=== PATIENT | male | born 1970 | race African-American/Black ===

== ENCOUNTER 2023-11-22 11:03 | Inpatient (IN) | payer OTHER ==
[2023-11-22 11:25] VITALS: BMI 31.0
[2023-11-22] MEDS ORDERED: guaiFENesin 600 MG TABLET.ER (FP) PO PRN (13:09)
[2023-11-22] MEDS ORDERED: METHOCARBAMOL 500 MG TABLET PO PRN (13:09)
[2023-11-22] MEDS ORDERED: ACETAMINOPHEN 325 MG TABLET (FP) PO PRN (13:09)
[2023-11-22] MEDS ORDERED: DICYCLOMINE HCL 10 MG CAPSULE PO PRN (13:09)
[2023-11-22] MEDS ORDERED: MAGNESIUM HYDROX 2400MG/30ML ORAL SUSPENSION 30 ML CUP PO PRN (13:09)
[2023-11-22] MEDS ORDERED: ONDANSETRON *ODT* 4 MG TABLET SL PRN (13:09)
[2023-11-22] MEDS ORDERED: MAG HYDROX/AL HYDROX/SIMETH 30 ML UNIT-DOSE CUP PO PRN (13:09)
[2023-11-22] MEDS ORDERED: IBUPROFEN 400 MG TABLET (FP) PO PRN (13:09)
[2023-11-22] MEDS ORDERED: POLYETHYLENE GLYCOL (HEALTHYLAX) 3350 17 GM PACKET PO PRN (13:09)
[2023-11-22] MEDS ORDERED: LOPERAMIDE HCL 2 MG CAPSULE PO PRN (13:09)
[2023-11-22] MEDS ORDERED: BENZONATATE 200 MG CAPSULE PO PRN (13:09)
[2023-11-22] MEDS ORDERED: IBUPROFEN 600 MG TABLET (FP) PO PRN (13:09)
[2023-11-22] MEDS ORDERED: hydrOXYzine PAMOATE 25 MG CAPSULE (FP) PO PRN (13:09)
[2023-11-22] MEDS ORDERED: NALOXONE HCL (KLOXXADO) 8 MG SPRAY NS PRN (13:09)
[2023-11-22] MEDS ORDERED: BENZOCAINE/MENTHOL (CHLORASEPTIC ) LOZENGE MM PRN (13:09)
[2023-11-22] MEDS ORDERED: NALOXONE HCL 0.4 MG/ML VIAL IM PRN (13:09)
[2023-11-22] MEDS ORDERED: BISMUTH SUBSALICYLATE 262 MG/15 ML BTL PO PRN (13:09)
[2023-11-22] MEDS ORDERED: NICOTINE POLACRILEX 2 MG GUM BUC PRN (13:19)
[2023-11-22] MEDS: NICOTINE 14 MG/24 HOURS TOPICAL PATCH TD SCH (14:19)
[2023-11-22] MEDS ORDERED: amLODIPine BESYLATE 5 MG TABLET (FP) ONE (14:20)
[2023-11-22] MEDS ORDERED: ASPIRIN 81 MG CHEWABLE TABLETS ONE (14:20)
[2023-11-22] MEDS ORDERED: PRENATAL VITAMINS W/ FOLIC ACID TABLET (FP) PO ONE (14:20)
[2023-11-22] MEDS: PRENATAL VITAMINS W/ FOLIC ACID TABLET (FP) PO SCH (14:22)
[2023-11-22] MEDS: ASPIRIN 81 MG CHEWABLE TABLETS PO SCH (14:22)
[2023-11-22] MEDS: amLODIPine BESYLATE 10 MG TABLET (FP) PO SCH (14:22)
[2023-11-22] MEDS: THIAMINE HCL 100 MG TABLET (FP) PO SCH (22:21)
[2023-11-22] MEDS: ATORVASTATIN CA 10 MG TABLET (FP) PO SCH (22:21)
[2023-11-22] MEDS: QUEtiapine FUMARATE 50 MG TABLET PO SCH (22:21)
[2023-11-22] MEDS: MELATONIN 5 MG TABLETS PO SCH (22:24)
[2023-11-22] MEDS: LISINOPRIL 20 MG TABLET PO ONE (22:32)
[2023-11-23 09:13] VITALS: TEMP 97.7
[2023-11-23] MEDS ORDERED: diazePAM 5 MG TABLET PO PRN (09:18)
[2023-11-23] MEDS: LISINOPRIL 20 MG TABLET PO SCH (09:24)
[2023-11-23] MEDS: ESCITALOPRAM OXALATE 10 MG TABLET PO SCH (09:24)
[2023-11-23] MEDS ORDERED: diazePAM 5 MG TABLET PO SCH (11:00)
[2023-11-23 12:12] LABS: HEMATOCRIT 43.8 % (35.4-49); HEMOGLOBIN 14.7 GM/dL (11.7-16.9); MCH 32.1 pg (25.7-33.7); MCHC 33.4 g/dl (32.0-35.9); PLATELET COUNT 233 10^3/uL (134-434); RBC 4.57 M/mm3 (4.00-5.60); RDW 15.6 % (11.9-15.9); WHITE BLOOD COUNT 3.7 K/mm3 (4.0-10.0)
[2023-11-23 12:49] VITALS: BP 167/92; PULSE 67; RESP 20
[2023-11-23 13:20] LABS: CHLORIDE 109 mmol/L (98-107); SODIUM 141 mmol/L (136-145)
[2023-11-23 13:29] LABS: CREATININE 0.9 mg/dL (0.55-1.3)
[2023-11-23 13:30] LABS: BILIRUBIN,TOTAL 0.3 mg/dL (0.2-1)
[2023-11-23 13:31] LABS: BLOOD UREA NITROGEN 7.7 mg/dL (7-18); TOT PROT 6.9 g/dl (6.4-8.2)
[2023-11-23 13:32] LABS: ALBUMIN 3.3 g/dl (3.4-5.0); ALK PHOS 67 U/L (45-117); ANION GAP 4 mmol/L (4-13); CO2 28 mmol/L (21-32); GLUCOSE,RANDOM 100 mg/dL (74-106)
[2023-11-23 13:33] LABS: SGOT/AST 16 U/L (15-37)
[2023-11-23] MEDS ORDERED: cloNIDine HCL 0.1 MG TABLET PO PRN (13:48)
[2023-11-23 13:58] LABS: SGPT/ALT 24 U/L (13-61)
[2023-11-23 18:40] LABS: HIV INTERPRETATION NEGATIVE (NEGATIVE)
[2023-11-25] MEDS ORDERED: diazePAM 5 MG TABLET PO SCH (06:00)
[2023-11-26] MEDS ORDERED: diazePAM 5 MG TABLET PO SCH (06:00)
[2023-11-27] MEDS ORDERED: diazePAM 5 MG TABLET PO ONE (06:00)
== END 2023-11-23 14:57 | disposition other institution (70) | DRG 774 ==
LOC: YASAS 11:03 → Y6N 13:34
PROVIDERS: ADMIT Allergy & Immunology; ATTEND Surgery
PROC: HZ2ZZZZ Detoxification Services for Substance Abuse Treatment (ICD-10-PCS; principal; 2023-11-22)
DX: F10.20 Alcohol dependence, uncomplicated (principal); F14.10 Cocaine abuse, uncomplicated; F17.210 Nicotine dependence, cigarettes, uncomplicated; F25.1 Schizoaffective disorder, depressive type; E78.5 Hyperlipidemia, unspecified; I10 Essential (primary) hypertension; Z62.810 Personal history of physical and sexual abuse in childhood; Z63.8 Other specified problems related to primary support group
CPT/HCPCS: 36415; 80053; 80305; 80307; 82140; 85027; 86780; 87389; 87635; 87811; 93005; 93010

== ENCOUNTER 2023-11-23 15:03 | Inpatient (IN) | payer OTHER ==
[~2023-11-23 15:03] MED LIST: BENZOCAINE/MENTHOL (CHLORASEPTIC ) LOZENGE MM PRN; BENZONATATE 200 MG CAPSULE PO PRN; IBUPROFEN 400 MG TABLET (FP) PO PRN; IBUPROFEN 600 MG TABLET (FP) PO PRN; LOPERAMIDE HCL 2 MG CAPSULE PO PRN; MAG HYDROX/AL HYDROX/SIMETH 30 ML UNIT-DOSE CUP PO PRN; MAGNESIUM HYDROX 2400MG/30ML ORAL SUSPENSION 30 ML CUP PO PRN; METHOCARBAMOL 500 MG TABLET PO PRN; NICOTINE 14 MG/24 HOURS TOPICAL PATCH TD PRN; NICOTINE 7 MG/24 HOURS TOPICAL PATCH TD PRN; NICOTINE POLACRILEX 2 MG GUM BUC PRN; POLYETHYLENE GLYCOL (HEALTHYLAX) 3350 17 GM PACKET PO PRN; guaiFENesin 600 MG TABLET.ER (FP) PO PRN
[2023-11-23] MEDS: THIAMINE HCL 100 MG TABLET (FP) PO SCH (21:23)
[2023-11-23] MEDS: MELATONIN 5 MG TABLETS PO SCH (21:23)
[2023-11-23] MEDS: ATORVASTATIN CA 10 MG TABLET (FP) PO SCH (21:23)
[2023-11-23] MEDS: QUEtiapine FUMARATE 50 MG TABLET PO SCH (21:24)
[2023-11-24] MEDS: hydrOXYzine PAMOATE 25 MG CAPSULE (FP) PO PRN (06:38)
[2023-11-24] MEDS: ACETAMINOPHEN 325 MG TABLET (FP) PO PRN (06:39)
[2023-11-24] MEDS: LISINOPRIL 20 MG TABLET PO SCH (10:25)
[2023-11-24] MEDS: ESCITALOPRAM OXALATE 10 MG TABLET PO SCH (10:26)
[2023-11-24] MEDS: PRENATAL VITAMINS W/ FOLIC ACID TABLET (FP) PO SCH (10:26)
[2023-11-24] MEDS: amLODIPine BESYLATE 10 MG TABLET (FP) PO SCH (10:26)
[2023-11-24] MEDS: ASPIRIN 81 MG CHEWABLE TABLETS PO SCH (10:26)
[2023-11-25] MEDS: HYDROCHLOROTHIAZIDE 12.5 MG CAPSULE (FP) PO SCH (16:39)
[2023-12-01 06:33] VITALS: PULSE 78; RESP 17; TEMP 97.7
[2023-12-01 10:26] VITALS: BP 131/73
[2023-12-02] MEDS ORDERED: HYDROCHLOROTHIAZIDE 25 MG TABLET (FP) PO SCH (10:00)
== END 2023-12-01 17:20 | disposition home or self-care (01) | DRG 772 ==
LOC: YASAS 15:03 → Y3W 15:04
PROVIDERS: ADMIT Allergy & Immunology; ATTEND Psychiatry & Neurology Pain Medicine
PROC: HZ42ZZZ Group Counseling for Substance Abuse Treatment, Cognitive-Behavioral (ICD-10-PCS; principal; 2023-11-23)
DX: F10.20 Alcohol dependence, uncomplicated (principal); F14.20 Cocaine dependence, uncomplicated; F12.20 Cannabis dependence, uncomplicated; F17.210 Nicotine dependence, cigarettes, uncomplicated; F25.1 Schizoaffective disorder, depressive type; F32.9 Major depressive disorder, single episode, unspecified; E78.5 Hyperlipidemia, unspecified; I10 Essential (primary) hypertension

== ENCOUNTER 2024-01-01 11:42 | Inpatient (IN) | payer OTHER ==
[2024-01-01 12:22] VITALS: BMI 31.0
[2024-01-01] MEDS ORDERED: POLYETHYLENE GLYCOL (HEALTHYLAX) 3350 17 GM PACKET PO PRN (13:22)
[2024-01-01] MEDS ORDERED: DOCUSATE SODIUM 100 MG CAPSULE (FP) PO PRN (13:22)
[2024-01-01] MEDS ORDERED: guaiFENesin 600 MG TABLET.ER (FP) PO PRN (13:22)
[2024-01-01] MEDS ORDERED: BENZONATATE 200 MG CAPSULE PO PRN (13:22)
[2024-01-01] MEDS ORDERED: NICOTINE POLACRILEX 2 MG GUM BUC PRN (13:22)
[2024-01-01] MEDS ORDERED: LOPERAMIDE HCL 2 MG CAPSULE PO PRN (13:22)
[2024-01-01] MEDS ORDERED: IBUPROFEN 400 MG TABLET (FP) PO PRN (13:22)
[2024-01-01] MEDS ORDERED: P-EPHED 60MG/TRIPROLIDI 2.5MG TABLET PO PRN (13:22)
[2024-01-01] MEDS ORDERED: MAGNESIUM HYDROX 2400MG/30ML ORAL SUSPENSION 30 ML CUP PO PRN (13:22)
[2024-01-01] MEDS: ASPIRIN 81 MG CHEWABLE TABLETS PO SCH (14:28)
[2024-01-01] MEDS: THIAMINE 100 MG TABLET PO SCH (21:13)
[2024-01-01] MEDS: MELATONIN 5 MG TABLETS PO SCH (21:13)
[2024-01-01] MEDS: hydrOXYzine PAMOATE 25 MG CAPSULE (FP) PO PRN (21:13)
[2024-01-01] MEDS: ATORVASTATIN CA 10 MG TABLET (FP) PO SCH (21:14)
[2024-01-01] MEDS: QUEtiapine FUMARATE 100 MG TABLET (FP) PO SCH (21:14)
[2024-01-02] MEDS: IBUPROFEN 600 MG TABLET (FP) PO PRN (05:48)
[2024-01-02] MEDS: HYDROCHLOROTHIAZIDE 12.5 MG CAPSULE (FP) PO SCH (10:20)
[2024-01-02] MEDS: amLODIPine BESYLATE 10 MG TABLET (FP) PO SCH (10:20)
[2024-01-02] MEDS: PRENATAL VITAMINS W/ FOLIC ACID TABLET (FP) PO SCH (10:20)
[2024-01-02] MEDS: ESCITALOPRAM OXALATE 10 MG TABLET PO SCH (10:20)
[2024-01-02] MEDS: LISINOPRIL 20 MG TABLET PO SCH (10:20)
[2024-01-02 11:57] LABS: HEMATOCRIT 44.9 % (35.4-49); HEMOGLOBIN 14.4 GM/dL (11.7-16.9); MCH 31.4 pg (25.7-33.7); MCHC 32.1 g/dl (32.0-35.9); MEAN CELL VOLUME 97.7 fl (80-96); MEAN PLT VOLUME 9.4 fl (7.5-11.1); PLATELET COUNT 192 10^3/uL (134-434); RDW 15.4 % (11.9-15.9); WHITE BLOOD COUNT 3.5 K/mm3 (4.0-10.0)
[2024-01-02 12:08] LABS: CHLORIDE 107 mmol/L (98-107); POTASSIUM 3.9 mmol/L (3.5-5.1); SODIUM 141 mmol/L (136-145)
[2024-01-02 12:10] LABS: CALCIUM 8.8 mg/dL (8.5-10.1)
[2024-01-02 12:11] LABS: ANION GAP 4 mmol/L (4-13); CO2 30 mmol/L (21-32)
[2024-01-02 12:13] LABS: GLUCOSE,RANDOM 126 mg/dL (74-106)
[2024-01-02 12:14] LABS: ALBUMIN 3.2 g/dl (3.4-5.0); BLOOD UREA NITROGEN 9.4 mg/dL (7-18); SGPT/ALT 26 U/L (13-61)
[2024-01-02 12:15] LABS: BILIRUBIN,TOTAL 0.2 mg/dL (0.2-1); TOT PROT 6.6 g/dl (6.4-8.2)
[2024-01-02 12:17] LABS: ALK PHOS 70 U/L (45-117); SGOT/AST 23 U/L (15-37)
[2024-01-02] MEDS ORDERED: QUEtiapine FUMARATE 100 MG TABLET (FP) ONE (20:38)
[2024-01-02] MEDS: QUEtiapine FUMARATE 300 MG TABLET PO SCH (21:27)
[2024-01-03] MEDS ORDERED: QUEtiapine FUMARATE 100 MG TABLET (FP) ONE (18:36)
[2024-01-04] MEDS ORDERED: QUEtiapine FUMARATE 100 MG TABLET (FP) ONE (19:05)
[2024-01-04] MEDS: BACLOFEN 10 MG TABLET (FP) PO SCH (21:12)
[2024-01-05] MEDS: LISINOPRIL 20 MG TABLET PO SCH (09:54)
[2024-01-05] MEDS ORDERED: QUEtiapine FUMARATE 100 MG TABLET (FP) ONE (18:46)
[2024-01-06] MEDS ORDERED: QUEtiapine FUMARATE 100 MG TABLET (FP) ONE (20:12)
[2024-01-07 11:58] LABS: PROTHROMBIN TIME (PATIENT) 11.6 SEC (9.7-13.0)
[2024-01-07] MEDS ORDERED: QUEtiapine FUMARATE 100 MG TABLET (FP) ONE (20:49)
[2024-01-08] MEDS ORDERED: QUEtiapine FUMARATE 100 MG TABLET (FP) ONE (20:07)
[2024-01-09] MEDS ORDERED: QUEtiapine FUMARATE 100 MG TABLET (FP) ONE (18:51)
[2024-01-10] MEDS ORDERED: QUEtiapine FUMARATE 100 MG TABLET (FP) ONE (19:31)
[2024-01-11 11:22] LABS: PH,URINE 6.5 (5.0-8.0); URINE APPEARANCE CLEAR; URINE BILIRUBIN NEGATIVE (NEGATIVE); URINE COLOR YELLOW; URINE GLUCOSE (UA) NEGATIVE (NEGATIVE); URINE KETONE NEGATIVE (NEGATIVE); URINE LEUK ESTERASE NEGATIVE (NEGATIVE); URINE NITRITE NEGATIVE (NEGATIVE); URINE PROTEIN NEGATIVE (NEGATIVE); URINE UROBILINOGEN 0.2 mg/dL (0.2-1.0)
[2024-01-11] MEDS ORDERED: QUEtiapine FUMARATE 100 MG TABLET (FP) ONE (19:29)
[2024-01-12] MEDS ORDERED: QUEtiapine FUMARATE 100 MG TABLET (FP) ONE (19:12)
[2024-01-12] MEDS: MAG HYDROX/AL HYDROX/SIMETH 30 ML UNIT-DOSE CUP PO PRN (20:33)
[2024-01-13] MEDS: BENZOCAINE/MENTHOL (CHLORASEPTIC ) LOZENGE MM PRN (09:16)
[2024-01-13] MEDS ORDERED: BENZONATATE 200 MG CAPSULE PO PRN (12:33)
[2024-01-13] MEDS: CHOLECALCIFEROL (VIT D3) 400 UNIT (10 MCG) TABLET PO SCH (12:55)
[2024-01-13] MEDS ORDERED: QUEtiapine FUMARATE 100 MG TABLET (FP) ONE (21:25)
[2024-01-14] MEDS ORDERED: QUEtiapine FUMARATE 100 MG TABLET (FP) ONE (19:25)
[2024-01-14] MEDS: ACETAMINOPHEN 325 MG TABLET (FP) PO PRN (20:26)
[2024-01-14] MEDS: guaiFENesin 600 MG TABLET.ER (FP) PO PRN (20:26)
[2024-01-15 09:11] VITALS: RESP 18
[2024-01-16 06:42] VITALS: TEMP 97.3
[2024-01-16 09:01] VITALS: BP 136/76; PULSE 92
== END 2024-01-16 09:03 | disposition home or self-care (01) | DRG 772 ==
LOC: YASAS 11:42 → Y3W 15:39
PROVIDERS: ADMIT Allergy & Immunology; ATTEND Psychiatry & Neurology Pain Medicine
PROC: HZ42ZZZ Group Counseling for Substance Abuse Treatment, Cognitive-Behavioral (ICD-10-PCS; principal; 2024-01-01)
DX: F10.20 Alcohol dependence, uncomplicated (principal); F14.20 Cocaine dependence, uncomplicated; F12.20 Cannabis dependence, uncomplicated; F17.210 Nicotine dependence, cigarettes, uncomplicated; F25.1 Schizoaffective disorder, depressive type; F19.282 Other psychoactive substance dependence with psychoactive substance-induced sleep disorder; E78.5 Hyperlipidemia, unspecified; I10 Essential (primary) hypertension; Z56.0 Unemployment, unspecified
CPT/HCPCS: 36415; 80053; 80307; 81003; 82140; 82306; 82962; 83036; 83735; 85027; 85610; 86780; 87811; J0475

== ENCOUNTER 2024-05-23 16:54 | Inpatient (IN) | payer OTHER ==
[2024-05-23 18:04] VITALS: BMI 33.0
[2024-05-23] MEDS ORDERED: MAGNESIUM HYDROX 2400MG/30ML ORAL SUSPENSION 30 ML CUP PO PRN (19:04)
[2024-05-23] MEDS ORDERED: LOPERAMIDE HCL 2 MG CAPSULE PO PRN (19:04)
[2024-05-23] MEDS ORDERED: IBUPROFEN 600 MG TABLET (FP) PO PRN (19:04)
[2024-05-23] MEDS ORDERED: BENZONATATE 200 MG CAPSULE PO PRN (19:04)
[2024-05-23] MEDS ORDERED: POLYETHYLENE GLYCOL (HEALTHYLAX) 3350 17 GM PACKET PO PRN (19:04)
[2024-05-23] MEDS ORDERED: NICOTINE POLACRILEX 2 MG LOZENGE BC PRN (19:04)
[2024-05-23] MEDS ORDERED: NICOTINE POLACRILEX 2 MG GUM BUC PRN (19:04)
[2024-05-23] MEDS ORDERED: IBUPROFEN 400 MG TABLET (FP) PO PRN (19:04)
[2024-05-23] MEDS ORDERED: MAG HYDROX/AL HYDROX/SIMETH 30 ML UNIT-DOSE CUP PO PRN (19:04)
[2024-05-23] MEDS ORDERED: guaiFENesin 600 MG TABLET.ER (FP) PO PRN (19:04)
[2024-05-23] MEDS ORDERED: BENZOCAINE/MENTHOL (CHLORASEPTIC ) LOZENGE MM PRN (19:04)
[2024-05-23] MEDS: THIAMINE 100 MG TABLET PO SCH (21:58)
[2024-05-23] MEDS: MELATONIN 5 MG TABLETS PO SCH (21:58)
[2024-05-23] MEDS: hydrOXYzine PAMOATE 25 MG CAPSULE (FP) PO PRN (21:58)
[2024-05-24 08:08] LABS: URINE APPEARANCE CLOUDY; URINE BILIRUBIN NEGATIVE (NEGATIVE); URINE COLOR YELLOW; URINE GLUCOSE (UA) NEGATIVE (NEGATIVE); URINE KETONE NEGATIVE (NEGATIVE); URINE LEUK ESTERASE NEGATIVE (NEGATIVE); URINE NITRITE NEGATIVE (NEGATIVE); URINE PROTEIN NEGATIVE (NEGATIVE)
[2024-05-24] MEDS: PRENATAL VITAMINS W/ FOLIC ACID TABLET (FP) PO SCH (09:58)
[2024-05-24] MEDS: ASPIRIN COATED 81 MG TABLET.EC PO SCH (13:45)
[2024-05-24] MEDS: amLODIPine BESYLATE 10 MG TABLET (FP) PO SCH (13:45)
[2024-05-24] MEDS: LISINOPRIL 20 MG TABLET PO SCH (13:46)
[2024-05-24] MEDS: QUEtiapine FUMARATE 50 MG TABLET PO SCH (21:32)
[2024-05-24] MEDS: ATORVASTATIN CA 10 MG TABLET (FP) PO SCH (21:32)
[2024-05-24] MEDS: BACLOFEN 10 MG TABLET (FP) PO SCH (21:32)
[2024-05-25] MEDS: HYDROCHLOROTHIAZIDE 12.5 MG CAPSULE (FP) PO SCH (10:43)
[2024-05-25] MEDS: CHOLECALCIFEROL (VIT D3) 400 UNIT (10 MCG) TABLET PO SCH (10:46)
[2024-05-25] MEDS: ESCITALOPRAM OXALATE 10 MG TABLET PO SCH (10:47)
[2024-05-26] MEDS ORDERED: QUEtiapine FUMARATE 25 MG TABLET ONE (20:51)
[2024-05-27] MEDS: HYDROCHLOROTHIAZIDE 25 MG TABLET (FP) PO SCH (09:35)
[2024-05-27] MEDS: ACETAMINOPHEN 325 MG TABLET (FP) PO PRN (22:16)
[2024-05-29 12:14] LABS: HEMATOCRIT 44.1 % (35.4-49); HEMOGLOBIN 14.5 GM/dL (11.7-16.9); MCH 31.4 pg (25.7-33.7); MCHC 32.8 g/dl (32.0-35.9); MEAN CELL VOLUME 95.7 fl (80-96); MEAN PLT VOLUME 9.2 fl (7.5-11.1); PLATELET COUNT 229 10^3/uL (134-434); RBC 4.61 M/mm3 (4.00-5.60); RDW 14.7 % (11.9-15.9)
[2024-05-29 12:36] LABS: CALCIUM 9.8 mg/dL (8.5-10.1)
[2024-05-29 12:38] LABS: ALBUMIN 3.4 g/dl (3.4-5.0); BLOOD UREA NITROGEN 13.5 mg/dL (7-18)
[2024-05-29 12:39] LABS: CREATININE 1.1 mg/dL (0.55-1.3)
[2024-05-29 12:41] LABS: BILIRUBIN,TOTAL 0.2 mg/dL (0.2-1); TOT PROT 7.2 g/dl (6.4-8.2)
[2024-06-03] MEDS ORDERED: QUEtiapine FUMARATE 25 MG TABLET ONE (21:31)
[2024-06-05 09:28] VITALS: BP 132/79; PULSE 90; RESP 18; TEMP 97.9
== END 2024-06-05 10:56 | disposition home or self-care (01) | DRG 772 ==
LOC: YASAS 16:54 → Y3E 21:25
PROVIDERS: ADMIT Allergy & Immunology; ATTEND Psychiatry & Neurology Pain Medicine
PROC: HZ42ZZZ Group Counseling for Substance Abuse Treatment, Cognitive-Behavioral (ICD-10-PCS; principal; 2024-05-23)
DX: F14.20 Cocaine dependence, uncomplicated (principal); F12.20 Cannabis dependence, uncomplicated; F17.210 Nicotine dependence, cigarettes, uncomplicated; F25.1 Schizoaffective disorder, depressive type; F19.282 Other psychoactive substance dependence with psychoactive substance-induced sleep disorder; I10 Essential (primary) hypertension; E78.5 Hyperlipidemia, unspecified; Z62.810 Personal history of physical and sexual abuse in childhood; Z63.8 Other specified problems related to primary support group
CPT/HCPCS: 36415; 80053; 80305; 80307; 81003; 84460; 85027; 87811; J0475

== ENCOUNTER 2024-09-19 14:27 | Inpatient (IN) | payer OTHER ==
[2024-09-19 15:12] VITALS: BMI 38.4
[2024-09-19] MEDS ORDERED: MAG HYDROX/AL HYDROX/SIMETH 30 ML UNIT-DOSE CUP PO PRN (17:02)
[2024-09-19] MEDS ORDERED: NALOXONE (NARCAN) HCL 4 MG/0.1 ML SPRAY NS PRN (17:02)
[2024-09-19] MEDS ORDERED: LOPERAMIDE HCL 2 MG CAPSULE PO PRN (17:02)
[2024-09-19] MEDS ORDERED: MAGNESIUM HYDROX 2400MG/30ML ORAL SUSPENSION 30 ML CUP PO PRN (17:02)
[2024-09-19] MEDS ORDERED: ACETAMINOPHEN 325 MG TABLET (FP) PO PRN (17:02)
[2024-09-19] MEDS ORDERED: BENZOCAINE/MENTHOL (CHLORASEPTIC ) LOZENGE MM PRN (17:02)
[2024-09-19] MEDS ORDERED: BISMUTH SUBSALICYLATE 524 MG/30 ML PO PRN (17:02)
[2024-09-19] MEDS ORDERED: ONDANSETRON *ODT* 4 MG TABLET SL PRN (17:02)
[2024-09-19] MEDS ORDERED: BENZONATATE 200 MG CAPSULE PO PRN (17:02)
[2024-09-19] MEDS ORDERED: DICYCLOMINE HCL 10 MG CAPSULE PO PRN (17:02)
[2024-09-19] MEDS ORDERED: IBUPROFEN 400 MG TABLET (FP) PO PRN (17:02)
[2024-09-19] MEDS ORDERED: POLYETHYLENE GLYCOL (HEALTHYLAX) 3350 17 GM PACKET PO PRN (17:02)
[2024-09-19] MEDS ORDERED: guaiFENesin 600 MG TABLET.ER (FP) PO PRN (17:02)
[2024-09-19] MEDS: IBUPROFEN 600 MG TABLET (FP) PO PRN (18:22)
[2024-09-19] MEDS: MELATONIN 5 MG TABLETS PO SCH (22:19)
[2024-09-19] MEDS: THIAMINE 100 MG TABLET PO SCH (22:19)
[2024-09-19] MEDS: hydrOXYzine PAMOATE 25 MG CAPSULE (FP) PO PRN (22:20)
[2024-09-19] MEDS: hydrOXYzine PAMOATE 25 MG CAPSULE (FP) PO ONE (23:37)
[2024-09-19] MEDS: MELATONIN 5 MG TABLETS PO ONE (23:38)
[2024-09-20] MEDS: LISINOPRIL 20 MG TABLET PO SCH (09:44)
[2024-09-20] MEDS: DIVALPROEX SODIUM 500 MG TABLET E.C. PO SCH (09:44)
[2024-09-20] MEDS: ASPIRIN 81 MG CHEWABLE TABLETS PO SCH (09:44)
[2024-09-20] MEDS: amLODIPine BESYLATE 10 MG TABLET (FP) PO SCH (09:44)
[2024-09-20] MEDS: PRENATAL VITAMINS W/ FOLIC ACID TABLET (FP) PO SCH (09:44)
[2024-09-20] MEDS: CHOLECALCIFEROL (VIT D3) 400 UNIT (10 MCG) TABLET PO SCH (09:46)
[2024-09-20] MEDS ORDERED: chlordiazePOXIDE HCL 25 MG CAPSULE PO PRN (10:06)
[2024-09-20] MEDS: chlordiazePOXIDE HCL 25 MG CAPSULE PO SCH (10:16)
[2024-09-20 11:11] LABS: HEMATOCRIT 42.2 % (35.4-49); HEMOGLOBIN 13.9 GM/dL (11.7-16.9); MCH 31.6 pg (25.7-33.7); MCHC 32.9 g/dl (32.0-35.9); MEAN CELL VOLUME 96.1 fl (80-96); MEAN PLT VOLUME 9.6 fl (7.5-11.1); PLATELET COUNT 227 10^3/uL (134-434); RDW 16.1 % (11.9-15.9); WHITE BLOOD COUNT 4.2 K/mm3 (4.0-10.0)
[2024-09-20 11:13] LABS: CHLORIDE 109 mmol/L (98-107); POTASSIUM 3.9 mmol/L (3.5-5.1); SODIUM 142 mmol/L (136-145)
[2024-09-20 11:20] LABS: ALBUMIN 3.2 g/dl (3.4-5.0); ANION GAP 4 mmol/L (4-13); BLOOD UREA NITROGEN 13.1 mg/dL (7-18); CALCIUM 8.9 mg/dL (8.5-10.1); CO2 29 mmol/L (21-32); GLUCOSE,RANDOM 139 mg/dL (74-106)
[2024-09-20 11:22] LABS: CREATININE 1.1 mg/dL (0.55-1.3)
[2024-09-20 11:23] LABS: SGOT/AST 54 U/L (15-37); SGPT/ALT 47 U/L (13-61)
[2024-09-20 11:24] LABS: BILIRUBIN,TOTAL 0.2 mg/dL (0.2-1); TOT PROT 7.2 g/dl (6.4-8.2)
[2024-09-20 11:25] LABS: ALK PHOS 77 U/L (45-117)
[2024-09-20] MEDS ORDERED: MELATONIN 5 MG TABLETS PO ONE (22:31)
[2024-09-20] MEDS: MELATONIN 5 MG TABLETS PO SCH (22:37)
[2024-09-20] MEDS: QUEtiapine FUMARATE 50 MG TABLET PO SCH (22:38)
[2024-09-20] MEDS: ATORVASTATIN CA 10 MG TABLET (FP) PO SCH (22:38)
[2024-09-22] MEDS: chlordiazePOXIDE HCL 25 MG CAPSULE PO SCH (05:41)
[2024-09-22] MEDS: hydrOXYzine PAMOATE 50 MG CAPSULE (FP) PO PRN (17:19)
[2024-09-22] MEDS: METOPROLOL TARTRATE 25 MG TABLET (FP) PO ONE ×2 (20:01→21:06)
[2024-09-22] MEDS: METHOCARBAMOL 500 MG TABLET PO PRN (22:43)
[2024-09-23] MEDS ORDERED: chlordiazePOXIDE HCL 10 MG CAPSULE PO PRN
[2024-09-23] MEDS: chlordiazePOXIDE HCL 10 MG CAPSULE PO SCH (05:44)
[2024-09-23 13:50] VITALS: BP 154/86; PULSE 86; RESP 18; TEMP 97.7
[2024-09-24] MEDS ORDERED: chlordiazePOXIDE HCL 10 MG CAPSULE PO SCH (05:00)
[2024-09-25] MEDS ORDERED: chlordiazePOXIDE HCL 10 MG CAPSULE PO ONE (05:00)
== END 2024-09-23 14:07 | DRG 774 ==
LOC: YASAS 14:27 → Y6N 17:52
PROVIDERS: ADMIT Psychiatry & Neurology Pain Medicine; ATTEND Psychiatry & Neurology Pain Medicine
PROC: HZ2ZZZZ Detoxification Services for Substance Abuse Treatment (ICD-10-PCS; principal; 2024-09-19)
DX: F10.230 Alcohol dependence with withdrawal, uncomplicated (principal); F14.20 Cocaine dependence, uncomplicated; F17.210 Nicotine dependence, cigarettes, uncomplicated; F25.1 Schizoaffective disorder, depressive type; F19.280 Other psychoactive substance dependence with psychoactive substance-induced anxiety disorder; F19.24 Other psychoactive substance dependence with psychoactive substance-induced mood disorder; I10 Essential (primary) hypertension; E78.5 Hyperlipidemia, unspecified; R45.851 Suicidal ideations; Z62.810 Personal history of physical and sexual abuse in childhood; Z63.8 Other specified problems related to primary support group
CPT/HCPCS: 36415; 80053; 80305; 80307; 85027; 86780; 86803; 93005; 93010

== ENCOUNTER 2025-03-02 11:16 | Inpatient (IN) | payer OTHER ==
[2025-03-02 12:00] VITALS: BMI 39.2
[2025-03-02] MEDS ORDERED: ACETAMINOPHEN 325 MG TABLET (FP) PO PRN (13:16)
[2025-03-02] MEDS ORDERED: IBUPROFEN 400 MG TABLET (FP) PO PRN (13:16)
[2025-03-02] MEDS ORDERED: IBUPROFEN 600 MG TABLET (FP) PO PRN (13:16)
[2025-03-02] MEDS ORDERED: guaiFENesin 600 MG TABLET.ER (FP) PO PRN (13:16)
[2025-03-02] MEDS ORDERED: NICOTINE POLACRILEX 2 MG GUM BUC PRN (13:16)
[2025-03-02] MEDS ORDERED: BENZONATATE 200 MG CAPSULE PO PRN (13:16)
[2025-03-02] MEDS ORDERED: BISMUTH SUBSALICYLATE 524 MG/30 ML PO PRN (13:16)
[2025-03-02] MEDS ORDERED: MAGNESIUM HYDROX 2400MG/30ML ORAL SUSPENSION 30 ML CUP PO PRN (13:16)
[2025-03-02] MEDS ORDERED: LORazepam 1 MG TABLET PO PRN (13:16)
[2025-03-02] MEDS ORDERED: MAG HYDROX/AL HYDROX/SIMETH 30 ML UNIT-DOSE CUP PO PRN (13:16)
[2025-03-02] MEDS ORDERED: DICYCLOMINE HCL 10 MG CAPSULE PO PRN (13:16)
[2025-03-02] MEDS ORDERED: LOPERAMIDE HCL 2 MG CAPSULE PO PRN (13:16)
[2025-03-02] MEDS ORDERED: ONDANSETRON *ODT* 4 MG TABLET SL PRN (13:16)
[2025-03-02] MEDS ORDERED: BENZOCAINE/MENTHOL (CHLORASEPTIC ) LOZENGE MM PRN (13:16)
[2025-03-02] MEDS ORDERED: POLYETHYLENE GLYCOL (HEALTHYLAX) 3350 17 GM PACKET PO PRN (13:16)
[2025-03-02] MEDS ORDERED: NALOXONE (NARCAN) HCL 4 MG/0.1 ML SPRAY NS PRN (13:16)
[2025-03-02] MEDS: LORazepam 2 MG TABLET PO SCH (17:28)
[2025-03-02] MEDS: hydrOXYzine PAMOATE 25 MG CAPSULE (FP) PO PRN (22:42)
[2025-03-02] MEDS: MELATONIN 5 MG TABLETS PO SCH (22:42)
[2025-03-02] MEDS: THIAMINE 100 MG TABLET PO SCH (22:43)
[2025-03-02] MEDS: ATORVASTATIN CA 10 MG TABLET (FP) PO SCH (22:43)
[2025-03-03 09:56] LABS: HEMATOCRIT 45.5 % (40.1-51.0); HEMOGLOBIN 14.3 g/dL (13.7-17.5); MCHC 31.4 g/dl (32.3-36.5); MEAN CELL VOLUME 96.4 fl (79.0-92.2); MEAN PLT VOLUME 11.1 fl (9.4-12.4); PLATELET COUNT 209 x10^3/uL (163-337); RDW 14.4 % (12.2-16.1)
[2025-03-03 09:59] LABS: CHLORIDE 107 mmol/L (98-107); POTASSIUM 4.2 mmol/L (3.5-5.1); SODIUM 140 mmol/L (136-145)
[2025-03-03 10:03] LABS: CALCIUM 9.1 mg/dL (8.5-10.1)
[2025-03-03 10:04] LABS: ALBUMIN 3.4 g/dl (3.4-5.0); ANION GAP 4 mmol/L (4-13); BLOOD UREA NITROGEN 10.7 mg/dL (7-18); CO2 29 mmol/L (21-32); GLUCOSE,RANDOM 105 mg/dL (74-106)
[2025-03-03 10:07] LABS: CREATININE 0.9 mg/dL (0.55-1.3); SGOT/AST 48 U/L (15-37)
[2025-03-03 10:08] LABS: BILIRUBIN,TOTAL 0.4 mg/dL (0.2-1); SGPT/ALT 49 U/L (13-61); TOT PROT 7.3 g/dl (6.4-8.2)
[2025-03-03] MEDS: PRENATAL VITAMINS W/ FOLIC ACID TABLET (FP) PO SCH (10:09)
[2025-03-03 10:10] LABS: ALK PHOS 93 U/L (45-117)
[2025-03-03] MEDS: amLODIPine BESYLATE 10 MG TABLET (FP) PO SCH (10:10)
[2025-03-03] MEDS: LISINOPRIL 10 MG TABLET PO SCH (10:10)
[2025-03-03] MEDS: METHOCARBAMOL 500 MG TABLET PO PRN (10:12)
[2025-03-04] MEDS: LORazepam 1 MG TABLET PO SCH (06:00)
[2025-03-05] MEDS ORDERED: LORazepam 0.5 MG TABLET PO PRN
[2025-03-05] MEDS: LORazepam 0.5 MG TABLET PO SCH (06:22)
[2025-03-06] MEDS: LORazepam 0.5 MG TABLET PO ONE (06:00)
[2025-03-06] MEDS: QUEtiapine FUMARATE 50 MG TABLET PO SCH (22:00)
[2025-03-06] MEDS: LISINOPRIL 10 MG TABLET PO ONE (22:00)
[2025-03-07 13:29] VITALS: BP 158/90; PULSE 88; RESP 18; TEMP 97.7
== END 2025-03-07 15:00 | disposition other institution (70) | DRG 774 ==
LOC: YASAS 11:16 → Y6N 14:11
PROVIDERS: ADMIT Family Medicine; ATTEND Family Medicine
PROC: HZ2ZZZZ Detoxification Services for Substance Abuse Treatment (ICD-10-PCS; principal; 2025-03-02)
DX: F10.230 Alcohol dependence with withdrawal, uncomplicated (principal); F14.20 Cocaine dependence, uncomplicated; F12.20 Cannabis dependence, uncomplicated; F17.210 Nicotine dependence, cigarettes, uncomplicated; F19.280 Other psychoactive substance dependence with psychoactive substance-induced anxiety disorder; F19.282 Other psychoactive substance dependence with psychoactive substance-induced sleep disorder; F19.24 Other psychoactive substance dependence with psychoactive substance-induced mood disorder; F25.9 Schizoaffective disorder, unspecified; I10 Essential (primary) hypertension; E78.5 Hyperlipidemia, unspecified; Z62.810 Personal history of physical and sexual abuse in childhood; Z63.8 Other specified problems related to primary support group; Z59.00 Homelessness unspecified
CPT/HCPCS: 36415; 80053; 80305; 80307; 85027; 86780; 93005; 93010

== ENCOUNTER 2025-03-07 14:54 | Inpatient (IN) | payer OTHER ==
[2025-03-07] MEDS ORDERED: MAG HYDROX/AL HYDROX/SIMETH 30 ML UNIT-DOSE CUP PO PRN (15:16)
[2025-03-07] MEDS ORDERED: LOPERAMIDE HCL 2 MG CAPSULE PO PRN (15:16)
[2025-03-07] MEDS ORDERED: NALOXONE HCL 0.4 MG/ML VIAL IVPUSH PRN (15:16)
[2025-03-07] MEDS ORDERED: NICOTINE POLACRILEX 4 MG GUM BUC PRN (15:16)
[2025-03-07] MEDS ORDERED: BENZONATATE 200 MG CAPSULE PO PRN (15:16)
[2025-03-07] MEDS ORDERED: hydrOXYzine PAMOATE 25 MG CAPSULE (FP) PO PRN (15:16)
[2025-03-07] MEDS ORDERED: guaiFENesin 600 MG TABLET.ER (FP) PO PRN (15:16)
[2025-03-07] MEDS ORDERED: POLYETHYLENE GLYCOL (HEALTHYLAX) 3350 17 GM PACKET PO PRN (15:16)
[2025-03-07] MEDS ORDERED: IBUPROFEN 400 MG TABLET (FP) PO PRN (15:16)
[2025-03-07] MEDS ORDERED: ACETAMINOPHEN 325 MG TABLET (FP) PO PRN (15:16)
[2025-03-07] MEDS ORDERED: MAGNESIUM HYDROX 2400MG/30ML ORAL SUSPENSION 30 ML CUP PO PRN (15:16)
[2025-03-07] MEDS ORDERED: BENZOCAINE/MENTHOL (CHLORASEPTIC ) LOZENGE MM PRN (15:16)
[2025-03-07] MEDS ORDERED: NALOXONE (NARCAN) HCL 4 MG/0.1 ML SPRAY NS PRN (15:16)
[2025-03-07] MEDS ORDERED: NICOTINE 7 MG/24 HOURS TOPICAL PATCH TD PRN (15:20)
[2025-03-07] MEDS: MELATONIN 5 MG TABLETS PO SCH (21:09)
[2025-03-07] MEDS: THIAMINE 100 MG TABLET PO SCH (21:09)
[2025-03-07] MEDS: ATORVASTATIN CA 10 MG TABLET (FP) PO SCH (21:09)
[2025-03-08] MEDS ORDERED: NICOTINE 7 MG/24 HOURS TOPICAL PATCH TD SCH (10:00)
[2025-03-08] MEDS: amLODIPine BESYLATE 10 MG TABLET (FP) PO SCH (10:18)
[2025-03-08] MEDS: LISINOPRIL 10 MG TABLET PO SCH (10:18)
[2025-03-08] MEDS: PRENATAL VITAMINS W/ FOLIC ACID TABLET (FP) PO SCH (10:19)
[2025-03-08 12:12] LABS: HIV INTERPRETATION NEGATIVE (NEGATIVE)
[2025-03-11] MEDS: METHOCARBAMOL 500 MG TABLET PO PRN (14:12)
[2025-03-12] MEDS: LISINOPRIL 20 MG TABLET PO SCH (14:49)
[2025-03-18] MEDS: IBUPROFEN 600 MG TABLET (FP) PO PRN (10:13)
[2025-04-01 07:17] VITALS: BP 134/84; PULSE 89; RESP 18; TEMP 97.8
== END 2025-04-01 08:30 | disposition home or self-care (01) | DRG 772 ==
LOC: YASAS 14:54 → Y3W 14:55 → Y3NR 03-12 11:18 → Y3W 03-12 11:19 → Y3NR 03-29 03:29 → Y3E 03-29 14:08
PROVIDERS: ADMIT Psychiatry & Neurology Pain Medicine; ATTEND Psychiatry & Neurology Pain Medicine
PROC: HZ42ZZZ Group Counseling for Substance Abuse Treatment, Cognitive-Behavioral (ICD-10-PCS; principal; 2025-03-07)
DX: F10.20 Alcohol dependence, uncomplicated (principal); F14.20 Cocaine dependence, uncomplicated; F12.20 Cannabis dependence, uncomplicated; F17.210 Nicotine dependence, cigarettes, uncomplicated; F25.9 Schizoaffective disorder, unspecified; F32.A Depression, unspecified; E78.5 Hyperlipidemia, unspecified; I10 Essential (primary) hypertension; Z59.00 Homelessness unspecified
CPT/HCPCS: 36415; 82962; 87389